=== PATIENT | male | born 1960 | race Caucasian/White ===

== ENCOUNTER 2016-08-25 14:51 | Emergency (ER) | payer OTHER ==
[~2016-08-25] VITALS: Ht 190.5 cm; Wt 108.0 kg
[~2016-08-25 14:51] MED LIST: AMLODIPINE BESYL5 MG PO; ASPIR-LOW81 MG PO; GEMFIBROZIL600 MG PO; GLUCOTROL5 MG PO; JANUVIA100 MG PO; LISINOPRIL10 MG PO; METFORMIN HCL1000 MG PO; METOPROLOL TART25 MG PO; NORCO 5/3251 TABLET PO; PRAVASTATIN SOD20 MG PO; TRAMADOL HCL50 MG PO; VALIUM2 MG PO; ZOFRAN4 MG PO
[2016-08-25 15:44] LABS: ADD MIUA? YES; BILIRUBIN NEGATIVE; BLOOD LARGE; COLOR STRAW ((YELLOW)); GLUCOSE (STRIP) >=500; KETONES NEGATIVE; LEUKOCYTES NEGATIVE; NITRITE NEGATIVE; PROTEIN (STRIP) 30; SPECIFIC GRAVITY 1.026 (1.000-1.030); UROBILINOGEN 0.2 MG/DL (0.2-1.0)
[2016-08-25 15:58] LABS: BACTERIA NONE SEEN /HPF; EPITHELIAL CELLS NONE SEEN /HPF; MUCUS NONE SEEN /LPF; RED BLOOD CELLS TNTC /HPF (0-5); UCUL ADDED? NO; WHITE BLOOD CELLS 0-5 /HPF (0-5)
[2016-08-25 16:49] LABS: HEMATOCRIT 41.7 % (38.0-50.0); MCH 28.6 PG (29.0-34.0); MCHC 34.1 G/DL (30.0-36.0); MCV 83.9 FL (86-99); PLATELET COUNT 165 K/uL (156-360); RBC DIS.WIDTH-SD 41.9 % (39-53); RED BLOOD COUNT 4.97 M/uL (4.00-5.50); WHITE BLOOD COUNT 11.6 K/uL (4.1-10.2)
[2016-08-25 17:05] LABS: CHLORIDE 101 mEq/L (99-109); POTASSIUM 5.4 mEq/L (3.7-5.4); SODIUM 136 mEq/L (136-147)
[2016-08-25 17:07] LABS: GLUCOSE 384 mg/dL (70-99)
[2016-08-25 17:08] LABS: ANION GAP 12 MEQ/L (2-14)
[2016-08-25 17:11] LABS: GFR ESTIMATE (CALCULATED) 51 mL/min/; UREA NITROGEN (BUN) 26 mg/dL (9-23)
[2016-08-25] MEDS ORDERED: PERCOCET 5/31 TABLET PO (22:20)
[2016-08-25 22:38] VITALS: BP 138/83
== END 2016-08-25 22:39 | disposition home or self-care (01) ==
LOC: EME 14:51
DX: R31.9 Hematuria, unspecified (principal); N28.89 Other specified disorders of kidney and ureter
CPT/HCPCS: 74176; 80048; 81003; 85027; 99281; 99284; J3010

== ENCOUNTER 2016-10-29 06:29 | Inpatient (IN) | payer OTHER ==
[~2016-10-29] VITALS: Ht 190.5 cm; Wt 109.3 kg
[~2016-10-29 06:29] MED LIST changes: +GLUCOTROL XL10 MG PO; +ONGLYZA5 MG PO; +PERCOCET 5/31 TABLET PO
[2016-10-29 07:03] VITALS: BP 121/87
[2016-10-29 07:43] LABS: POINT-OF-CARE METER ID UU14174212
[2016-10-29 11:19] LABS: POINT-OF-CARE METER ID UU13113675
[2016-10-29] MEDS ORDERED: PERCOCET 5/31 TABLET PO (11:23)
[2016-10-29] MEDS ORDERED: DOCUSATE SODIU100 MG PO (11:23)
[2016-10-29 13:13] VITALS: BP 138/90
[2016-10-29 14:36] LABS: HEMATOCRIT 40.2 % (38.0-50.0); MCH 29.4 PG (29.0-34.0); MCHC 33.8 G/DL (30.0-36.0); MCV 86.8 FL (86-99); MEAN PLAT.VOLUME 10.4 uM^3 (9.0-12.4); PLATELET COUNT 140 K/uL (156-360); RBC DIS.WIDTH-CV 13.9 % (11.8-14.6); RBC DIS.WIDTH-SD 43.2 % (39-53); RED BLOOD COUNT 4.63 M/uL (4.00-5.50)
[2016-10-29 14:43] LABS: WHITE BLOOD COUNT 10.6 K/uL (4.1-10.2)
[2016-10-29 15:04] LABS: ANION GAP 9 MEQ/L (2-14); CHLORIDE 102 MEQ/L (99-109); GFR ESTIMATE (CALCULATED) > 59 mL/min/; GLUCOSE 224 mg/dL (70-99); POTASSIUM 4.4 MEQ/L (3.7-5.4); SAMPLE HEMOLYSIS CHECK 0; SAMPLE ICTERIC CHECK 0; SAMPLE LIPEMIA CHECK 0; SODIUM 139 MEQ/L (136-147); UREA NITROGEN (BUN) 16 mg/dL (9-23)
[2016-10-29 19:11] VITALS: BP 130/77
[2016-10-30] VITALS: BP 134/60
[2016-10-30 05:18] LABS: HEMATOCRIT 38.6 % (38.0-50.0); MCH 28.7 PG (29.0-34.0); MCHC 33.4 G/DL (30.0-36.0); MEAN PLAT.VOLUME 10.2 uM^3 (9.0-12.4); PLATELET COUNT 154 K/uL (156-360); RBC DIS.WIDTH-CV 13.9 % (11.8-14.6); RED BLOOD COUNT 4.49 M/uL (4.00-5.50); WHITE BLOOD COUNT 11.7 K/uL (4.1-10.2)
[2016-10-30 05:44] LABS: ANION GAP 8 MEQ/L (2-14); CHLORIDE 100 MEQ/L (99-109); GFR ESTIMATE (CALCULATED) 51 mL/min/; GLUCOSE 188 mg/dL (70-99); POTASSIUM 4.5 MEQ/L (3.7-5.4); SAMPLE HEMOLYSIS CHECK 0; SAMPLE ICTERIC CHECK 0; SAMPLE LIPEMIA CHECK 0; SODIUM 136 MEQ/L (136-147); UREA NITROGEN (BUN) 19 mg/dL (9-23)
[2016-10-30 06:31] LABS: POINT-OF-CARE METER ID UU13113725
[2016-10-30 07:20] VITALS: BP 151/85
[2016-10-30 16:15] VITALS: BP 125/72
[2016-10-31 00:10] VITALS: BP 158/86
[2016-10-31 05:51] LABS: POINT-OF-CARE METER ID UU13113725
[2016-10-31 06:51] LABS: HEMATOCRIT 37.5 % (38.0-50.0); MCH 28.3 PG (29.0-34.0); MCHC 32.8 G/DL (30.0-36.0); MCV 86.4 FL (86-99); MEAN PLAT.VOLUME 10.6 uM^3 (9.0-12.4); PLATELET COUNT 141 K/uL (156-360); RBC DIS.WIDTH-CV 13.7 % (11.8-14.6); RBC DIS.WIDTH-SD 43.4 % (39-53); RED BLOOD COUNT 4.34 M/uL (4.00-5.50)
[2016-10-31 06:58] LABS: WHITE BLOOD COUNT 7.4 K/uL (4.1-10.2)
[2016-10-31 07:14] LABS: ANION GAP 8 MEQ/L (2-14); CHLORIDE 99 MEQ/L (99-109); GFR ESTIMATE (CALCULATED) 51 mL/min/; GLUCOSE 171 mg/dL (70-99); POTASSIUM 4.4 MEQ/L (3.7-5.4); SAMPLE HEMOLYSIS CHECK 0; SAMPLE ICTERIC CHECK 0; SAMPLE LIPEMIA CHECK 0; SODIUM 139 MEQ/L (136-147); UREA NITROGEN (BUN) 19 mg/dL (9-23)
[2016-10-31 07:26] VITALS: BP 154/89
[2016-10-31 11:15] LABS: POINT-OF-CARE METER ID UU13113725
[2016-10-31 16:07] VITALS: BP 132/80
[2016-10-31 16:43] LABS: POINT-OF-CARE METER ID UU13113725
[2016-10-31 21:11] LABS: POINT-OF-CARE METER ID UU13113725
[2016-10-31 22:48] VITALS: BP 138/85
[2016-11-01 04:30] VITALS: BP 130/80
[2016-11-01 05:52] LABS: POINT-OF-CARE METER ID UU13113725
[2016-11-01 07:05] VITALS: BP 138/85
[2016-11-01 07:36] LABS: ANION GAP 9 MEQ/L (2-14); CHLORIDE 100 MEQ/L (99-109); GFR ESTIMATE (CALCULATED) 56 mL/min/; GLUCOSE 191 mg/dL (70-99); POTASSIUM 4.3 MEQ/L (3.7-5.4); SAMPLE HEMOLYSIS CHECK 0; SAMPLE ICTERIC CHECK 0; SAMPLE LIPEMIA CHECK 0; SODIUM 138 MEQ/L (136-147); UREA NITROGEN (BUN) 23 mg/dL (9-23)
== END 2016-11-01 10:38 | disposition home or self-care (01) | DRG 658 ==
LOC: 2SOUTH 06:29 → 5EAST 13:13 → 2SOUTH 15:39 → 5EAST 11-01 10:38
PROVIDERS: Nurse Practitioner Adult Health; Urology
PROC: 0TT04ZZ Resection of Right Kidney, Percutaneous Endoscopic Approach (ICD-10-PCS; principal; 2016-10-29)
DX: C64.1 Malignant neoplasm of right kidney, except renal pelvis (principal); R31.0 Gross hematuria; Z87.891 Personal history of nicotine dependence; E11.9 Type 2 diabetes mellitus without complications; Z79.84 Long term (current) use of oral hypoglycemic drugs; I51.9 Heart disease, unspecified
CPT/HCPCS: 80048; 82948; 85027; 88307; 94799; J0131; J0330; J0690; J1100; J1170; J1650; J1815; J2250; J2405; J2710; J2765; J3010; J7120

== ENCOUNTER 2017-12-19 04:43 | Inpatient (IN) | payer OTHER ==
[~2017-12-19] VITALS: Ht 190.5 cm; Wt 130.2 kg
[~2017-12-19 04:43] MED LIST changes: +DOCUSATE SODIU100 MG PO
[2017-12-19 06:54] LABS: BASOPHIL COUNT 0.1 K/uL (0-0.1); EOSINOPHIL (%) 6.1 % (0-5); EOSINOPHIL COUNT 0.4 K/uL (0-0.3); HEMATOCRIT 36.9 % (38.0-50.0); HEMOGLOBIN 12.7 G/DL (12.5-16.6); LYMPHOCYTE (%) 27.8 % (15-42); LYMPHOCYTE COUNT 1.6 K/uL (1.0-2.8); MCH 29.4 PG (29.0-34.0); MCHC 34.4 G/DL (30.0-36.0); MCV 85.4 FL (86-99); MONOCYTE (%) 5.8 % (3-12); MONOCYTE COUNT 0.3 K/uL (0-0.8); NEUTROPHIL (%) 58.3 % (45-76); NEUTROPHIL COUNT 3.4 K/uL (1.8-6.4); PLATELET COUNT 135 K/uL (156-360); RBC DIS.WIDTH-CV 14.2 % (11.8-14.6); RBC DIS.WIDTH-SD 44.2 % (39-53); RED BLOOD COUNT 4.32 M/uL (4.00-5.50); WHITE BLOOD COUNT 5.9 K/uL (4.1-10.2)
[2017-12-19 07:20] LABS: ALBUMIN 4.6 G/DL (3.2-4.8); ALKALINE PHOSPHATASE 63 IU/L (3-129); ALT (GPT) 22 IU/L (3-49); AST (GOT) 23 IU/L (2-34); CHLORIDE 102 MEQ/L (99-109); CREATININE 1.5 MG/DL (0.6-1.3); GFR ESTIMATE (CALCULATED) 51 mL/min/ (58.99-99999); GLUCOSE 265 mg/dL (70-99); POTASSIUM 5.5 MEQ/L (3.7-5.4); SODIUM 134 MEQ/L (136-147); TOTAL BILIRUBIN 0.5 MG/DL (0.0-1.0); TOTAL PROTEIN 6.9 G/DL (6.4-8.3); UREA NITROGEN (BUN) 31 mg/dL (9-23)
[2017-12-19] MEDS ORDERED: PEN-VEE K,VEET500 MG PO (08:20)
[2017-12-19] MEDS ORDERED: HYDROCODON-ACE1 EAC7 PO (08:20)
[2017-12-19] MEDS ORDERED: FLOMAX0.4 MG PO (08:21)
[2017-12-19] MEDS ORDERED: COLACE100 MG PO (08:21)
[2017-12-19] MEDS ORDERED: LO-DOSE ASPIRIN81 M1 PO (08:22)
[2017-12-19 08:40] LABS: TROP-I INTERPRETATION NEGATIVE; TROPONIN-I < 0.01 ng/mL (0.0-0.30)
[2017-12-19 09:17] VITALS: BP 154/88
[2017-12-19 09:59] LABS: CHLORIDE 102 MEQ/L (99-109); CREATININE 1.5 MG/DL (0.6-1.3); GFR ESTIMATE (CALCULATED) 51 mL/min/ (58.99-99999); GLUCOSE 289 mg/dL (70-99); POTASSIUM 6.1 MEQ/L (3.7-5.4); SODIUM 133 MEQ/L (136-147); UREA NITROGEN (BUN) 32 mg/dL (9-23)
[2017-12-19 15:25] LABS: CHLORIDE 104 MEQ/L (99-109); CREATININE 1.4 MG/DL (0.6-1.3); GFR ESTIMATE (CALCULATED) 55 mL/min/ (58.99-99999); GLUCOSE 287 mg/dL (70-99); POTASSIUM 5.9 MEQ/L (3.7-5.4); SODIUM 133 MEQ/L (136-147); UREA NITROGEN (BUN) 31 mg/dL (9-23)
[2017-12-19 19:14] VITALS: BP 135/79
[2017-12-20 00:25] VITALS: BP 136/69
[2017-12-20 04:39] VITALS: BP 132/75
[2017-12-20 05:24] LABS: HEMATOCRIT 36.8 % (38.0-50.0); HEMOGLOBIN 12.4 G/DL (12.5-16.6); MCHC 33.7 G/DL (30.0-36.0); PLATELET COUNT 168 K/uL (156-360); RBC DIS.WIDTH-CV 14.5 % (11.8-14.6); RBC DIS.WIDTH-SD 44.9 % (39-53); RED BLOOD COUNT 4.28 M/uL (4.00-5.50); WHITE BLOOD COUNT 10.7 K/uL (4.1-10.2)
[2017-12-20 05:45] LABS: CHLORIDE 102 MEQ/L (99-109); CREATININE 1.4 MG/DL (0.6-1.3); GFR ESTIMATE (CALCULATED) 55 mL/min/ (58.99-99999); GLUCOSE 343 mg/dL (70-99); POTASSIUM 5.3 MEQ/L (3.7-5.4); SODIUM 134 MEQ/L (136-147); UREA NITROGEN (BUN) 29 mg/dL (9-23)
[2017-12-20 05:56] LABS: APPEARANCE CLEAR ((CLEAR)); BILIRUBIN NEGATIVE; BLOOD NEGATIVE; COLOR STRAW ((YELLOW)); GLUCOSE (STRIP) >=500; KETONES NEGATIVE; LEUKOCYTES NEGATIVE; NITRITE NEGATIVE; PROTEIN (STRIP) NEGATIVE; SPECIFIC GRAVITY 1.023 (1.000-1.030); UCUL ADDED? NO; UROBILINOGEN 0.2 MG/DL (0.2-1.0)
[2017-12-20 09:00] VITALS: BP 138/70
[2017-12-20 11:51] VITALS: BP 134/69
[2017-12-20 16:14] VITALS: BP 131/83
[2017-12-20 19:00] VITALS: BP 135/71
[2017-12-21 04:22] VITALS: BP 152/90
[2017-12-21 07:38] LABS: HEMATOCRIT 36.5 % (38.0-50.0); MCH 28.6 PG (29.0-34.0); MCHC 32.9 G/DL (30.0-36.0); MCV 87.1 FL (86-99); PLATELET COUNT 179 K/uL (156-360); RBC DIS.WIDTH-CV 14.5 % (11.8-14.6); RBC DIS.WIDTH-SD 45.7 % (39-53); RED BLOOD COUNT 4.19 M/uL (4.00-5.50); WHITE BLOOD COUNT 11.6 K/uL (4.1-10.2)
[2017-12-21 07:46] VITALS: BP 125/82
[2017-12-21 08:04] LABS: CHLORIDE 100 MEQ/L (99-109); CREATININE 1.5 MG/DL (0.6-1.3); GFR ESTIMATE (CALCULATED) 51 mL/min/ (58.99-99999); GLUCOSE 251 mg/dL (70-99); POTASSIUM 4.9 MEQ/L (3.7-5.4); SODIUM 134 MEQ/L (136-147); UREA NITROGEN (BUN) 35 mg/dL (9-23)
[2017-12-21] MEDS ORDERED: CYCLOBENZAPRINE10 MG PO (12:48)
[2017-12-21] MEDS ORDERED: PERCOCET 7.51 TABLET PO (12:48)
[2017-12-21] MEDS ORDERED: GABAPENTIN400 MG PO (12:50)
[2017-12-21 14:59] VITALS: BP 158/88
[2017-12-21 16:07] VITALS: BP 158/88
[2017-12-21 19:50] VITALS: BP 146/83
[2017-12-21 23:04] VITALS: BP 127/74
[2017-12-22 07:31] VITALS: BP 137/82
[2017-12-22 09:11] LABS: HEMATOCRIT 39.2 % (38.0-50.0); HEMOGLOBIN 12.9 G/DL (12.5-16.6); MCH 28.2 PG (29.0-34.0); MCHC 32.9 G/DL (30.0-36.0); MCV 85.6 FL (86-99); PLATELET COUNT 202 K/uL (156-360); RBC DIS.WIDTH-CV 14.2 % (11.8-14.6); RBC DIS.WIDTH-SD 43.8 % (39-53); RED BLOOD COUNT 4.58 M/uL (4.00-5.50); WHITE BLOOD COUNT 12.8 K/uL (4.1-10.2)
[2017-12-22 09:34] LABS: CHLORIDE 99 MEQ/L (99-109); CREATININE 1.4 MG/DL (0.6-1.3); GFR ESTIMATE (CALCULATED) 55 mL/min/ (58.99-99999); GLUCOSE 212 mg/dL (70-99); POTASSIUM 4.6 MEQ/L (3.7-5.4); SODIUM 134 MEQ/L (136-147); UREA NITROGEN (BUN) 32 mg/dL (9-23)
[2017-12-22] MEDS ORDERED: MEDROL DOSEPAK4 MG PO (09:51)
== END 2017-12-22 11:23 | disposition home or self-care (01) | DRG 472 ==
LOC: EME 04:43 → EDOF 07:48 → ENRESERV 07:51 → 4SOUTH 09:06 → ENRESERV 12-20 16:47 → 3EAST 12-21 14:19
PROVIDERS: Emergency Medicine; Hospitalist; Internal Medicine; Nurse Practitioner Adult Health; Nurse Practitioner Family; Physician Assistant
DX: M47.12 Other spondylosis with myelopathy, cervical region (principal); M50.023 Cervical disc disorder at C6-C7 level with myelopathy; M48.02 Spinal stenosis, cervical region; N17.9 Acute kidney failure, unspecified; E87.5 Hyperkalemia; T46.4X5A Adverse effect of angiotensin-converting-enzyme inhibitors, initial encounter; E11.65 Type 2 diabetes mellitus with hyperglycemia; D69.6 Thrombocytopenia, unspecified; I42.9 Cardiomyopathy, unspecified; I10 Essential (primary) hypertension; I25.10 Atherosclerotic heart disease of native coronary artery without angina pectoris; E78.5 Hyperlipidemia, unspecified; Z87.891 Personal history of nicotine dependence; Z95.1 Presence of aortocoronary bypass graft; Z95.5 Presence of coronary angioplasty implant and graft; Z90.5 Acquired absence of kidney; Z79.84 Long term (current) use of oral hypoglycemic drugs
CPT/HCPCS: 72020; 72125; 72141; 76000; 80048; 80048 91; 80053; 81003; 82948; 84132 91; 84484; 85025; 85027; 93005; 99281; 99284; C1713; C1821; G0378; J0690; J1100; J1170; J1815; J1885; J2060; J2250; J2270; J2405; J2710; J3010; J7030; J7040; J7643